=== PATIENT | female | born 1935 | race Caucasian/White ===

== ENCOUNTER 2017-02-27 14:16 | Inpatient (IN) | payer MEDICARE ==
[~2017-02-27] VITALS: Ht 170.2 cm; Wt 128.7 kg
[~2017-02-27 14:16] MED LIST: COUMADIN10 MG PO; COUMADIN7.5 MG PO; DULCOLAX-DPS5 MG PO; MILK OF MAGNESI10 ML PO; SENOKOT S1 TAB PO; TOPROL XL DPS50 MG PO; TYLENOL325 MG PO; ULTRAM50 MG PO; VITAMIN D-32000 UNI1 PO
--- NOTE | 2017-02-28 23:33 | HP ---
ADMIT: 02/27/2017 RM/LOC: 420 [facility] MR#: [id number] LOCATED WITHIN [facility]#: [id number] [address] [address] JESSE GOMES [address] [place] [address] History and Physical SEX: F AGE: 81 : 1935 DATE OF SERVICE: CHIEF COMPLAINT: Weakness, found down at home. HISTORY OF PRESENT ILLNESS: The patient is a 81-year-old female, normally sees Evelia yan in the clinic, who reportedly last night went to bed at midnight. Woke up around 2:00 a.m., found herself on the floor. She did not call family, it sounds like until 10:00 am this morning. She was unable to getup in the meantime. Prior to this, she had kind of a stomach bug flew, not feeling well. No major nausea or vomiting, however, over the last week or so. Normally helps volunteered at daycare and no other kids have been sick there recently. Otherwise, no shortness of breath. No cough. She had been taking her medications as prescribed. FAMILY HISTORY: Reviewed and noncontributory. SOCIAL HISTORY: Lives at home alone. Nonsmoker. Family at bedside very involved. MEDICATIONS: She is on: 1. Coumadin. 2. Metoprolol ER 50 mg twice daily. PHYSICAL EXAMINATION: VITAL SIGNS: She is afebrile. Blood pressure , heart rate is 156, temperature 98.4, O2 saturation 93% on room air. GENERAL: She is alert and oriented x3. No acute distress. Very pleasant female. HEENT: Normocephalic, atraumatic. Pupils equal, round, and reactive to light and accommodation. Very dry mucous membranes. NECK: No lymphadenopathy. Soft, supple. Trachea midline. LUNGS: Clear to auscultation bilaterally. No wheezes, rales, or rhonchi. HEART: Regular rate and rhythm. No murmurs, rubs, or gallops. ABDOMEN: Soft, nontender, nondistended. Bowel sounds present. EXTREMITIES: She has no cyanosis or clubbing. She has some 1+ pitting edema in bilateral lower extremities. SKIN: She has a red, erythematous left lower extremity below her knee. Rest of the entirety of her left lower leg warm, induration, not really tender. NEUROLOGICAL: No focal deficits noted. Cranial nerves II through XII grossly intact. PSYCHIATRIC: Very pleasant, extremely conversational, interacts well with others. LABORATORY AND X-RAY DATA: Her creatinine is 1.6, baseline of 0.8. INR is 1.28. CK is , troponin 0.039, white count 18.2, platelets 90. Lactic acid 4.8. UA is negative other than granular casts seen. Procalcitonin 7.59. Chest x-ray is reviewed. No acute findings. EKG shows atrial fibrillation, RVR. ADMIT: 02/27/2017 RM/LOC: 420 [facility] MR#: [id number] [address] [address] JESSE GOMES [address] [place] [address] History and Physical SEX: F AGE: 81 : 1935 ASSESSMENT: 1. Sepsis. 2. Cellulitis. 3. Atrial fibrillation, rapid ventricular response. 4. Acute kidney injury. 5. Mild rhabdomyolysis. PLAN: The patient will get IV antibiotics, already given Zosyn downstairs. IV fluid resuscitation. Close monitoring. She is on Cardizem drip and we will continue this and wean it off as tolerated. We will continue her beta valerie. Hopefully, once her infection is under better control, her atrial fibrillation will easily be controlled. We will monitor her INR. Otherwise, we will monitor renal function closely. The patient is agreeable to plan. Bryon Barboza MD/ lexie JOB #: [id number] CC: Bryon Barboza, Attending Physician Bryon Barboza, Family Physician
[2017-03-02] MEDS ORDERED: ESTER-C 1,0001 EACH PO (11:54)
[2017-03-02] MEDS ORDERED: LASIX DPS40 MG PO (11:54)
[2017-03-02] MEDS ORDERED: MICRO-K DPS10 MEQ PO (11:55)
[2017-03-02] MEDS ORDERED: IRON18 MG PO (11:56)
[2017-03-02] MEDS ORDERED: OMEGA-3 DPS1000 MG PO (11:57)
[2017-03-02] MEDS ORDERED: GLUCOSAMINE &1 EAC1 PO (11:57)
[2017-03-02] MEDS ORDERED: DAILY MULTIPLE1 EAC1 PO (11:57)
[2017-03-02] MEDS ORDERED: ROBITUSSIN NIG118 ML PO (11:58)
[2017-03-02] MEDS ORDERED: ZYRTEC DPS10 MG PO (11:58)
[2017-03-02] MEDS ORDERED: MYCOSTATIN PWD15 GM TP (11:59)
[2017-03-02] MEDS ORDERED: BACTRIM DS DPS1 TAB PO (11:59)
[2017-03-02] MEDS ORDERED: KEFLEX-DPS500 MG PO (11:59)
--- NOTE | 2017-03-03 10:17 | DS ---
ADMIT: 02/27/2017 RM/LOC: 420 [facility] MR#: [id number] [address] [address] KATHSRINIVASAFidelinaJESSE Felicitas [address] [place] [address] Discharge Summary SEX: F AGE: 81 : 1935 ADMISSION DATE: 02/27/2017 DISCHARGE DATE: 03/01/2017 CONSULTATIONS: None. PROCEDURES: None. FINAL DIAGNOSES: 1. Sepsis secondary to cellulitis. 2. Left lower limb cellulitis. 3. Mild rhabdomyolysis. 4. Acute kidney injury. 5. Atrial fibrillation with rapid ventricular response. 6. Hypertension. REASON FOR ADMISSION: The patient is a 81-year-old female, found down at home. She had been there for about 12 hours or more, overall weak, had been eating and drinking as well recently, went to the ER, found to have above- mentioned problems, admitted for further stabilization. HOSPITAL COURSE: The patient was admitted, placed on IV antibiotics. She had a large left lower limb cellulitis likely driving her process. She had some AFib with RVR. Initially on some Cardizem drip. She was started back on her beta-valerie, did well with this. In regard to her infection, responded very well to this better than expected actually. She from a vital sign standpoint stabilized and did well. Her acute kidney injury resolved. Her creatinine at admit was 1.6, went back to 1.1. She felt safe and stable for discharge back to home, was ambulating room and tolerating diet well. DISCHARGE INSTRUCTIONS: She was discharged to home. Follow up with Evelia Mcdaniel, her normal provider in the next 3 to 5 days. To get a BMP at followup appointment. DISCHARGE MEDICATIONS: 1. Bactrim DS one tab p.o. b.i.d. for 7 days. 2. Keflex 500 mg p.o. b.i.d. for 7 days. Otherwise be on her home regimen. Please see discharge MAR for full details regarding her meds. Bryon Barboza MD/ lexie JOB #: [id number] CC: Bryon Barboza MD, Attending Physician Bryon Barboza MD, Family Physician
--- NOTE | 2017-03-05 16:08 | ER ---
ADMIT: 02/27/2017 RM/LOC: 420 [facility] MR#: [id number] [address] [address] JESSE GOMES [address] [place] [address] Emergency Room Report SEX: F AGE: 81 : 1935 DATE: 02/27/2017 ADDENDUM: A 81-year-old white female coming in with an episode of syncope. She was down at the floor, I think family found her, brought here. She says she felt like she has had the flu for the last couple of days. No fever here. She was actually hypertensive with atrial fibrillation with rapid rate. Then, we started a Cardizem drip on her. We screened her as a sepsis, finding out that she had a lactate of 4.8, but no source of infection. White count is 18,000. CPK was 1909, which is probably from her laying down. EKG again atrial fibrillation. I spoke with Dr. Barboza. We went ahead and did the sepsis protocol on her. She received fluid antibiotics down here and she will be admitted to PCU per Dr. Barboza. CONDITION ON DISCHARGE: Critical, but stable at this time. Terry Burkett MD/ budl JOB #: [id number] CC: Bryon Barboza MD, Attending Physician Bryon Barboza MD, Family Physician
== END 2017-03-01 12:30 | disposition home or self-care (01) | DRG 872 ==
LOC: ER 14:16 → 4PCU 16:45
PROVIDERS: ADMIT Internal Medicine
DX: A41.9 Sepsis, unspecified organism (principal); N17.9 Acute kidney failure, unspecified; M62.82 Rhabdomyolysis; L03.116 Cellulitis of left lower limb; I48.91 Unspecified atrial fibrillation; I10 Essential (primary) hypertension; Z79.01 Long term (current) use of anticoagulants